=== PATIENT | female | born 1985 | race Caucasian/White ===

== ENCOUNTER → 2020-03-26 | Outpatient (CLI) | payer OTHER | LOC: KOH-I 11:08 | DX: R05 Cough (principal); R07.9 Chest pain, unspecified; F17.210 Nicotine dependence, cigarettes, uncomplicated | CPT/HCPCS: 71045; 71111 ==

== ENCOUNTER → 2020-12-16 | Outpatient (CLI) | payer OTHER ==
[2020-12-16 15:09] LABS: HEMOGLOBIN 13.8 gm/dl (12.3-15.3); WHITE BLOOD COUNT 13.6 K/UL (4.5-11.0)
[2020-12-16 15:33] LABS: BUN/CREATININE RATIO 10 (0-10)
== END ==
LOC: LAB 14:11
DX: Z79.899 Other long term (current) drug therapy (principal)
CPT/HCPCS: 36415; 80053; 80061; 83036; 84439; 84443; 85007; 85025; 85027